=== PATIENT | male | born 1945 | race Caucasian/White ===

== ENCOUNTER → 2017-12-29 | Outpatient (CLI) | payer MEDICARE, OTHER ==
[~2017-12-29] MED LIST: ASPI-839 PO; BARIUM SULFATE 176 GM BTL PO ONE; BARIUM SULFATE 340 GM POWD ONE; CHOL10005 PO; FAM20 PO; IBU600 PO; LEV500 PO; LOR5/325 PO; MULT-885 PO; OMEG-36 PO; OMEP-153 PO; PANT40TA65 PO; PHENA200 PO; PRAV10TA45 PO; RANI-325 PO; TADA5TAB7 PO
--- NOTE | 2017-12-29 17:00 | RADIOLOGY IMAGING REPORT ---
FACILITY: [facility] [place] PATIENT NAME: Joesph Mercado : 1945 MR: [id number] V: [id number] EXAM DATE: ORDERING PHYSICIAN: JOSE WALKER TECHNOLOGIST: Location: [facility] Patient: Joesph Mercado : 1945 Visit/Account:[id number] Date of Sevice: 12/29/2017 Exam type: ESOPHAGRAM History: Difficulty swallowing food and pills, GERD, dysphasia Comparison: September 11, 2014. Findings: Again noted is focal narrowing of the cervical esophagus at the approximate level of C4-5 immediately adjacent to anterior cervical fusion hardware appears similar to the prior study. Trace endotrachea l aspiration was noted upon the initial swallowing maneuver no other narrowing was identified within the esophagus. There is a small hiatal hernia with moderate gastroesophageal reflux observed. No mu cosal abnormalities identified. The fluoroscopy dose area product was 265.59 micro-Kohler per meter sq uared IMPRESSION: 1. There is a focal narrowing in the cervical esophagus at the level of the C4-5 fusion hardware alt [place] appears similar to the prior study Trace endotracheal aspiration was noted Small hiatal hernia with moderate gastroesophageal reflux Report Dictated By: Jocelin Stanley MD at 12/29/2017 4:44 PM Report E-Signed By: Jocelin Stanley MD at 12/29/2017 4:55 PM WSN:[id number]
== END ==
LOC: RAD 00:47
PROVIDERS: ATTEND Otolaryngology
DX: K22.2 Esophageal obstruction (principal); K44.9 Diaphragmatic hernia without obstruction or gangrene; K21.9 Gastro-esophageal reflux disease without esophagitis
CPT/HCPCS: 74220

== ENCOUNTER → 2018-01-04 | Outpatient (CLI) | payer MEDICARE, OTHER ==
[~2018-01-04] MED LIST changes: -BARIUM SULFATE 176 GM BTL PO ONE; -BARIUM SULFATE 340 GM POWD ONE
== END ==
LOC: LAB 14:56
PROVIDERS: ATTEND Otolaryngology
DX: J30.9 Allergic rhinitis, unspecified (principal)
CPT/HCPCS: 36415; 86003